=== PATIENT | male | born 1960 | race Caucasian/White ===

== ENCOUNTER 2016-11-09 17:46 | Emergency (ER) | payer OTHER ==
[~2016-11-09] VITALS: Ht 167.6 cm; Wt 49.4 kg
[2016-11-09 18:16] VITALS: BP 85/58
--- NOTE | 2016-11-09 18:18 | PHYS DOC ---
Past Medical History Past Medical History: Cancer, Stroke, Other Additional Past Medical Histor: THROAT CANCER Past Surgical History: Other Additional Past Surgical Histo: PORT, PEG TUBE Alcohol Use: None Drug Use: None Adult General Chief Complaint Chief Complaint: GTUBE REPLACEMENT/MALFUNCTION [facility] HPI Patient is a 56 year old male who presents with complaint of dislodged gastrostomy tube. Patient states that this came out approximately 30-45 minutes prior to arrival. Patient states that it accidentally was pulled out. The patient states that he has not had any similar history of G-tube dislodgment. The patient has history of throat cancer and is dependent on a gastrostomy tube for feeding. Patient denies any abnormal symptoms at this time. The patient came to have his tube replaced. Review of Systems Review of Systems Constitutional: Denies fever or chills [] Eyes: Denies change in visual acuity, redness, or eye pain [] HENT: Denies nasal congestion or sore throat [] Respiratory: Denies cough or shortness of breath [] Cardiovascular: No additional information not addressed in HPI [] GI: Denies abdominal pain, nausea, vomiting, bloody stools or diarrhea [] : Denies dysuria or hematuria [] Musculoskeletal: Denies back pain or joint pain [] Integument: Denies rash or skin lesions [] Neurologic: Denies headache, focal weakness or sensory changes [] Endocrine: Denies polyuria or polydipsia [] Allergies Allergies Allergies Coded Allergies Type Severity Reaction Last Updated Verified No Known Drug Allergies 11/09/16 No Physical Exam Physical Exam Constitutional: Alert, afebrile, no acute distress. [] HENT: Normocephalic, atraumatic, bilateral external ears normal, oropharynx moist, no oral exudates, nose normal. [] Neck: Normal range of motion, no tenderness, supple, no stridor. [] Cardiovascular:Heart rate regular rhythm, no murmur [] Lungs & Thorax: Bilateral breath sounds clear to auscultation [] Abdomen: Bowel sounds normal, soft, left gastrostomy site without bleeding or excoriation, no masses, no pulsatile masses. [] Skin: Warm, dry, no erythema, no rash. [] Back: No tenderness, no CVA tenderness. [] Extremities: No tenderness, no cyanosis, no clubbing, ROM intact, no edema. [] Neurologic: Alert and oriented X 3, normal motor function, normal sensory function, no focal deficits noted. [] Current Patient Data Vital Signs Vital Signs Date Time Temp Pulse Resp B/P Pulse Ox O2 Delivery O2 Flow Rate FiO2 11/09/16 18:16 75 20 85/58 97 Room Air 11/09/16 17:54 98.1 98.1 EKG EKG Not performed [] Radiology/Procedures Radiology/Procedures Not performed [] Course & Med Decision Making Course & Med Decision Making Pertinent Labs and Imaging studies reviewed. (See chart for details) The patient's G-tube was replaced as outlined in the procedure note without complication. Advised patient to follow-up with his primary doctor in 1 week and return to emergency department for any worsening symptoms. Dragon Disclaimer Dragon Disclaimer This electronic medical record was generated, in whole or in part, using a voice recognition dictation system. Gastrostomy Tube Replacement Indication: Dislodged G-tube Procedure: The patient was placed in the supine position and the patient's gastric tube was replaced without difficulty. The placement was verified with aspiration of gastric contents in the G-tube flushed with sterile water with these and patient reported no discomfort with G-tube flush. The patient tolerated the procedure without difficulty. Complications: None Departure Departure Impression: Primary Impression: PEG (percutaneous endoscopic gastrostomy) adjustment/replacement/removal Disposition: 01 HOME, SELF-CARE Condition: IMPROVED Patient Instructions: PEG, Home Care, [id number] Additional Instructions: Follow-up with your primary doctor in 1 week. Return to the emergency department for any worsening symptoms. KELLI CARPENTER MD Nov 09, 2016 18:18
== END 2016-11-09 18:37 | disposition home or self-care (01) ==
LOC: ER 17:46
DX: T85.528A Displacement of other gastrointestinal prosthetic devices, implants and grafts, initial encounter (principal); Z43.1 Encounter for attention to gastrostomy; Z93.1 Gastrostomy status; Z86.73 Personal history of transient ischemic attack (TIA), and cerebral infarction without residual deficits
CPT/HCPCS: 43760; 99284-25

== ENCOUNTER 2017-04-30 08:18 | Observation (INO) | payer OTHER ==
[~2017-04-30] VITALS: Ht 165.1 cm; Wt 47.2 kg
[2017-04-30] MEDS ORDERED: IV NORMAL SALINE 1000ML BAG 1,000 ML IV SCH (10:17)
[2017-04-30] MEDS ORDERED: MORPHINE SULFATE 2 MG/ML DISP.SYRIN. IV PRN (10:30)
[2017-04-30] MEDS ORDERED: ONDANSETRON PF 4 MG/2 ML VIAL. IV PRN (10:30)
[2017-04-30 12:04] LABS: BASO % 1 % (0-3); EOS % 0 % (0-3); HEMATOCRIT 39.5 % (39.0-53.0); HEMOGLOBIN 13.4 g/dL (13.0-17.5); LYMPH # 0.7 x10^3/uL (1.0-4.8); LYMPH % 10 % (24-48); MEAN CORPUSCULAR HEMOGLOBIN 35 pg (25-35); MEAN CORPUSCULAR HGB CONC 34 g/dL (31-37); MEAN CORPUSCULAR VOLUME 102 fL (79-100); MONO % 4 % (0-9); NEUT % 85 % (31-73); PLATELET COUNT 239 x10^3/uL (140-400); RED BLOOD COUNT 3.88 x10^6/uL (4.30-5.70); RED CELL DISTRIBUTION WIDTH 13.5 % (11.5-14.5); WHITE BLOOD COUNT 7.3 x10^3/uL (4.0-11.0)
[2017-04-30 12:15] LABS: CALCIUM 9.3 mg/dL (8.5-10.1); CREATININE 0.9 mg/dL (0.7-1.3); GFR 87.3; POTASSIUM 4.9 mmol/L (3.5-5.1)
--- NOTE | 2017-04-30 12:20 | HP ---
ADMIT DATE: 04/30/2017 CHIEF COMPLAINT: PEG tube fell off. HISTORY OF PRESENT ILLNESS: The patient is a pleasant middle-aged white male who has history of throat cancer. He had radiation and chemo, no surgery was required. Since then he has had to have a PEG tube. He has also had a stroke in the past. Basically, last night his PEG fell out. We have put a Pierre in the PEG site, but he needs a new PEG. I have discussed the case with the ER physician who is admitting him with consultation to GI. PAST MEDICAL HISTORY: Stroke and throat cancer with chemotherapy and radiation and PEG tube. ALLERGIES: None. FAMILY HISTORY: Hypertension. SOCIAL HISTORY: He quit smoking. No drinking or drugs. He lives at home. MEDICATIONS: Reviewed, please refer to the MRAD. REVIEW OF SYSTEMS: GENERAL: No history of weight change, weakness or fevers. SKIN: No bruising, hair changes or rashes. EYES: No blurred, double or loss of vision. NOSE AND THROAT: No history of nosebleeds, hoarseness or sore throat. HEART: No history of palpitations, chest pain or shortness of breath on exertion. LUNGS: Denies cough, hemoptysis, wheezing or shortness of breath. GASTROINTESTINAL: He complains that his PEG fell off. GENITOURINARY: No history of frequency, urgency, hesitancy or nocturia. NEUROLOGIC: Denies history of numbness, tingling, tremor or weakness. PSYCHIATRIC: No history of panic, anxiety or depression. ENDOCRINE: No history of heat or cold intolerance, polyuria or polydipsia. EXTREMITIES: Denies muscle weakness, joint pain, pain on walking or stiffness. PHYSICAL EXAMINATION: VITAL SIGNS: Temperature afebrile, pulse 67, respirations 18, blood pressure 144/94. GENERAL: He is alert, cooperative. HEART: Normal S1, S2. LUNGS: Clear. ABDOMEN: Soft. There is a Pierre in his PEG site. ENDOCRINE: No thyromegaly. LYMPHATICS: No cervical nodes. HEMATOPOIETIC: No bruising. EXTREMITIES: No edema. SKIN: He is kind of tanned. LABORATORY DATA: Pending. ASSESSMENT AND PLAN: Failed PEG tube. The patient is being admitted. We are consulting Gastroenterology. We have a Pierre in place to the PEG tube site to hold it open. Continue his home medicines. Await PEG to be replaced. LISAL Aida LAND DO DR: Jen JOB#: [id number] / [id number]
[2017-04-30 12:35] LABS: PLT ESTIMATE ADEQUATE (ADEQUATE)
[2017-04-30] MEDS ORDERED: LEVE500T6 PO (12:39)
[2017-04-30] MEDS ORDERED: ATOR20TA58 PO (12:39)
[2017-04-30] MEDS ORDERED: CITA20TA5 PO (12:39)
[2017-04-30] MEDS ORDERED: ARIP10TA9 PO (12:39)
[2017-04-30] MEDS ORDERED: BRIM5DRO2 OU (12:39)
[2017-04-30] MEDS ORDERED: CLOP75TA PO (12:39)
[2017-04-30] MEDS ORDERED: PANT40TA5 PO (12:39)
[2017-04-30] MEDS ORDERED: METO10TA PO (12:39)
[2017-04-30] MEDS ORDERED: OXYC30TA PO (12:39)
[2017-04-30 15:00] VITALS: BP 159/97
[2017-04-30 15:09] VITALS: BP 161/92
--- NOTE | 2017-04-30 15:16 | PHYS DOC ---
Past Medical History Past Medical History: Cancer, Stroke, Other Additional Past Medical Histor: THROAT CANCER Past Surgical History: Other Additional Past Surgical Histo: PORT, PEG TUBE Alcohol Use: None Drug Use: None Adult General Chief Complaint Chief Complaint: GTUBE REPLACEMENT/MALFUNCTION HPI HPI Patient is a 56 year old male who presents with dislodged g tube. The patient is PEG tube dependent is secondary to throat cancer. He woke up this morning to discover that his PEG tube had become dislodged. He has no other complaints. He is completely dependent on PEG tube for fluid and hydration. His GI doctor is at [facility]. Review of Systems Review of Systems Constitutional: Denies fever or chills HENT: Denies nasal congestion Respiratory: Denies cough or shortness of breath Cardiovascular: Denies chest pain GI: Denies abdominal pain, nausea, vomiting, or diarrhea. Reports dislodged PEG tube. Musculoskeletal: Denies back pain or joint pain Integument: Denies rash Neurologic: Denies headache Allergies Allergies Allergies Coded Allergies Type Severity Reaction Last Updated Verified No Known Drug Allergies 11/09/16 No Physical Exam Physical Exam Constitutional: Well developed, well nourished, no acute distress, non-toxic appearance. HENT: Normocephalic, atraumatic, bilateral external ears normal, oropharynx moist, nose normal. Eyes: conjunctiva normal, no discharge. Cardiovascular: no edema. Lungs & Thorax: no respiratory distress. Abdomen: soft, nontender, nondistended. Ostomy with absent PEG tube. Skin: Warm, dry, no erythema, no rash. Extremities: No tenderness, no edema. Neurologic: Alert and oriented X 3 Current Patient Data Vital Signs Vital Signs Date Time Temp Pulse Resp B/P (MAP) Pulse Ox O2 Delivery O2 Flow Rate FiO2 04/30/17 08:23 98.4 88 16 128/77 (94) 98 Room Air 98.4 EKG EKG [] Radiology/Procedures Radiology/Procedures [] Course & Med Decision Making Course & Med Decision Making Pertinent Labs and Imaging studies reviewed. (See chart for details) The patient presents with dislodged g tube. Attempted to replace 18 bangladeshi tube without success. Ultimately was able to pass 12 bangladeshi herrera catheter. Discussed with Dr. Fulton of GI who agrees to consult but patient will need to be admitted. Discussed with Dr. Zhu who agrees to admit to inpatient status. Admitted in stable condition. [] Dragon Disclaimer Dragon Disclaimer This electronic medical record was generated, in whole or in part, using a voice recognition dictation system. Departure Departure Impression: Primary Impression: PEG (percutaneous endoscopic gastrostomy) adjustment/replaceme... Disposition: ADMITTED INPATIENT Condition: STABLE Referrals: UNKNOWN PCP NAME (PCP) JANIA DUMONT MD Apr 30, 2017 15:16
--- NOTE | 2017-04-30 20:57 | CONS ---
DATE OF CONSULTATION: 04/30/2017 CHIEF COMPLAINT: G-tube dysfunction. HISTORY OF PRESENT ILLNESS: This is a 56-year-old gentleman with previous radiation to the neck for cancer who has had a feeding gastrostomy tube in place for it sounds like about a year. It has fallen out on 1 or 2 occasions in the past, which is unclear as to the mechanism, and it recurred again on this presentation. He is, however, able to take pills and some limited liquids by mouth. He just is unable to keep up with full nutrition because of the bad taste and difficulties with swallowing. Because his tube had been out for several hours, they were unable to place an 18- or 20-Kazakh feeding tube safely in the Emergency Room, so a smaller Pierre catheter was placed just to maintain access. IV fluids were given, and he was admitted. In discussions with him now, he would like to go home because he has an appointment at ENT on Tuesday and then set up replacement of his PEG tube as an elective procedure next week here at [place]. This sounds reasonable to me, particularly since he is taking his meds and oral nutrition and uses the PEG tube for supplemental tube feedings. PHYSICAL EXAMINATION: GENERAL: He is thin. NECK: Supple. CHEST: Clear. HEART: Regular rate and rhythm. ABDOMEN: Bowel sounds present, soft. A Pierre catheter is in place in his prior PEG site. It is nontender. No obvious mass or discharge. RECTAL: Deferred. EXTREMITIES: No cyanosis, clubbing or edema. LABORATORIES: Not available due to computer problems at this time. 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 He has a percutaneous endoscopic gastrostomy tube in place, and it came out last night inadvertently. He is, however, taking some nutrition orally and uses at least 2 boosts a day plus he takes his pills and is not clinically dehydrated at this time. PLAN: He requests since it is Tuesday, we are not going to replace the tube today that he be discharged. He has an appointment at ENT on Tuesday, and then we could electively replace the tube later in the week. If that is agreeable to the admitting physician, we would certainly support that option for him. JOSEPH KWAN MD DR: EYE/nts JOB#: [id number] / [id number]
== END 2017-04-30 17:35 | disposition home or self-care (01) ==
LOC: ER 08:18 → 5 NORTH 09:47
PROVIDERS: ADMIT Internal Medicine; ATTEND Internal Medicine
DX: T85.528A Displacement of other gastrointestinal prosthetic devices, implants and grafts, initial encounter (principal); R13.12 Dysphagia, oropharyngeal phase; Y83.3 Surgical operation with formation of external stoma as the cause of abnormal reaction of the patient, or of later complication, without mention of misadventure at the time of the procedure; Y92.89 Other specified places as the place of occurrence of the external cause; Y84.2 Radiological procedure and radiotherapy as the cause of abnormal reaction of the patient, or of later complication, without mention of misadventure at the time of the procedure; Z85.819 Personal history of malignant neoplasm of unspecified site of lip, oral cavity, and pharynx; Z86.73 Personal history of transient ischemic attack (TIA), and cerebral infarction without residual deficits; Z82.49 Family history of ischemic heart disease and other diseases of the circulatory system; Z92.3 Personal history of irradiation; Z87.891 Personal history of nicotine dependence
CPT/HCPCS: 36415; 80048; 85007; 85025; 96360; 96361; 99285; G0378; J7030; G0379